=== PATIENT | female | born 1990 ===

== ENCOUNTER 2016-07-05 08:08 | Outpatient (CLI) | payer OTHER ==
--- NOTE | 2016-07-05 09:31 | Mammography Report ---
Left mammogram and left breast ultrasound: The patient presents with a palpable mass in her left breast which she indicates changes somewhat during her period. The A marker was placed over the area of concern which is in the inferior breast and routine views as well as spot compression imaging is obtained. The patient has a dense fibroglandular pattern but there is no discrete mass noted. Ultrasound is 5:00 location 6 cm from the nipple however demonstrates a well-circumscribed, elongated, homogeneously hypoechoic mass with lobulated contours. It measures 2.3 cm in greatest dimension. There is no enhancement or attenuation of this collection. No significant internal vascularity on color imaging. There is a benign-appearing single left axilla. Impression: Left breast mass which is consistent but not diagnostic of fibroadenoma. Recommendation: Ultrasound guided biopsy. The findings and recommendations have been discussed with the patient. BI-RADS CATEGORY: 4 = Suspicious ACR BI-RADS MAMMOGRAPHIC CODES: 0 = Needs additional imaging evaluation; 1 = Negative; 2 = Benign; 3 = Probably benign; 4 = Suspicious; 5 = Malignant; 6 = Known biopsy-proven malignancy COMMENT: 1. Dense breast tissue, i.e., adenosis, fibrocystic changes, etc., may obscure an underlying neoplasm. 2. Approximately 10% of cancers are not detected with mammography. 3. A negative mammography report should not delay biopsy if a clinically suspicious mass is present.
== END 2016-07-05 08:09 | disposition home or self-care (01) ==
LOC: SPVWC 08:08
PROVIDERS: ATTEND Internal Medicine
DX: N63 Unspecified lump in breast (principal)
CPT/HCPCS: 76642; G0206

== ENCOUNTER 2016-07-23 08:35 | Outpatient (CLI) | payer OTHER ==
--- NOTE | 2016-07-23 09:38 | Ultrasound Report ---
ULTRASOUND GUIDED NEEDLE CORE BIOPSY LEFT BREAST WITH CLIP PLACEMENT: 07/23/16 CLINICAL: Left breast mass at 5 o'clock. COMPARISON :07/05/16 FINDINGS: The procedure was explained to the patient and informed consent was obtained. Ultrasound demonstrated the previously described mass at 5 o'clock 6 cm from the nipple. I marked the breast with a felt tip marker and a time out was called. The skin was prepped with Betadine and anesthetized with 1% lidocaine. Needle core biopsy was performed through a tiny dermatotomy using ultrasound guidance, 2% lidocaine with epinephrine for deep anesthesia and a 14-gauge Achieve biopsy device. Imaging demonstrated satisfactory sampling. 3 cores were obtained and placed in formalin. A clip was deployed within the mass. The patient tolerated the procedure well and there were no apparent complications. The clip was well imaged within the mass by ultrasound, so a post procedure mammogram was not performed. Hemostasis was achieved with minimal pressure and a sterile dressing was applied. She left the department in good condition and was given instructions for wound care and followup. IMPRESSION: Uncomplicated ultrasound guided needle core biopsy with clip placement left breast.
== END 2016-07-23 08:36 | disposition home or self-care (01) ==
LOC: SPVWC 08:35
PROVIDERS: ATTEND Nurse Practitioner Family
DX: N63 Unspecified lump in breast (principal)
CPT/HCPCS: 19083; 88305; A4648